=== PATIENT | male | born 1990 | race Caucasian/White ===

== ENCOUNTER 2022-07-17 07:59 | Day surgery (SDC) | payer OTHER ==
[2022-07-17] MEDS ORDERED: ACETAMINOPHEN 1000 MG/100 ML BAG IVPB ONE (08:32)
[2022-07-17] MEDS ORDERED: SODIUM CHLORIDE 0.9% 500 ML INFUS.BAG IV ONE (08:32)
[2022-07-17] MEDS ORDERED: ACETAMINOPHEN INJECTION 100 ML IVPB ONE (08:49)
[2022-07-17 09:27] LABS: BASO % 0.5 % (0-2.0); EOS % 1.4 % (0-4.5); HEMATOCRIT 42.7 % (35.4-49); HEMOGLOBIN 14.5 GM/dL (11.7-16.9); LYMPH % 31.3 % (8-40); MCH 29.6 pg (25.7-33.7); MCHC 33.9 g/dl (32.0-35.9); MEAN CELL VOLUME 87.3 fl (80-96); MEAN PLT VOLUME 10.8 fl (7.5-11.1); MONO % 7.4 % (3.8-10.2); NEUT % 59.4 % (42.8-82.8); PLATELET COUNT 168 10^3/uL (134-434); RBC 4.89 M/mm3 (4.00-5.60); WHITE BLOOD COUNT 7.8 K/mm3 (4.0-10.0)
[2022-07-17 09:31] LABS: INR 1.11 (0.83-1.09); PROTHROMBIN TIME (PATIENT) 12.9 SEC (9.7-13.0); URINE APPEARANCE CLEAR; URINE BILIRUBIN NEGATIVE (NEGATIVE); URINE COLOR YELLOW; URINE GLUCOSE (UA) NEGATIVE (NEGATIVE); URINE KETONE NEGATIVE (NEGATIVE); URINE LEUK ESTERASE NEGATIVE (NEGATIVE); URINE NITRITE NEGATIVE (NEGATIVE); URINE PROTEIN NEGATIVE (NEGATIVE); URINE UROBILINOGEN 0.2 mg/dL (0.2-1.0)
[2022-07-17 09:33] LABS: ACTIVATED PTT 30.9 SECONDS (25.2-36.5)
[2022-07-17 10:04] LABS: ALBUMIN 3.8 g/dl (3.4-5.0); CALCIUM 9.1 mg/dL (8.5-10.1)
[2022-07-17 10:09] LABS: BILIRUBIN,TOTAL 0.5 mg/dL (0.2-1); TOT PROT 7.2 g/dl (6.4-8.2)
[2022-07-17 10:37] LABS: BLOOD UREA NITROGEN 17.1 mg/dL (7-18); CREATININE 0.9 mg/dL (0.55-1.3)
[2022-07-17] MEDS ORDERED: CEFOXITIN SODIUM 2 GM in DEXTROSE 5%-WATER - 100 ML IVPB ONE ×2 (14:43→16:00)
[2022-07-17] MEDS ORDERED: ONDANSETRON 4 MG/2 ML VIAL IVPUSH PRN (15:39)
[2022-07-17] MEDS: DEXTROSE 5%-LACTATED RINGERS 1,000 ML IV SCH (16:09)
[2022-07-17 18:34] VITALS: BMI 32.4
[2022-07-18] MEDS: DEXTROSE 5%-LACTATED RINGERS 1,000 ML IV SCH (01:25)
[2022-07-18 07:58] LABS: BASO % 0.6 % (0-2.0); EOS % 2.3 % (0-4.5); HEMATOCRIT 39.6 % (35.4-49); HEMOGLOBIN 13.5 GM/dL (11.7-16.9); LYMPH % 39.7 % (8-40); MCH 29.7 pg (25.7-33.7); MCHC 34.1 g/dl (32.0-35.9); MEAN CELL VOLUME 87.3 fl (80-96); MEAN PLT VOLUME 10.7 fl (7.5-11.1); MONO % 7.1 % (3.8-10.2); NEUT % 50.3 % (42.8-82.8); PLATELET COUNT 153 10^3/uL (134-434); RBC 4.54 M/mm3 (4.00-5.60); RDW 12.4 % (11.9-15.9)
[2022-07-18] MEDS ORDERED: BUPIVACAINE HCL/PF 0.25% (2.5MG/ML) 10 ML VIAL ONE (08:10)
[2022-07-18 08:19] LABS: BLOOD UREA NITROGEN 10.9 mg/dL (7-18); CALCIUM 8.7 mg/dL (8.5-10.1)
[2022-07-18 08:23] LABS: CREATININE 0.9 mg/dL (0.55-1.3)
[2022-07-18] MEDS ORDERED: ROCURONIUM BROMIDE 50 MG/5 ML SYRINGE ONE (09:58)
[2022-07-18] MEDS ORDERED: SUCCINYLCHOLINE CHLORIDE 200 MG/10 ML SYRINGE ONE (09:58)
[2022-07-18] MEDS ORDERED: LIDOCAINE HCL/PF 2% SDV 5ML VIAL ONE (09:58)
[2022-07-18] MEDS ORDERED: MIDAZOLAM HCL 2 MG/2 ML SINGLE DOSE VIAL ONE (09:58)
[2022-07-18] MEDS ORDERED: cefOXitin SODIUM 2 GM VIAL (RESTRICTED TO ID) IVPB ONE ×2 (10:09→10:10)
[2022-07-18] MEDS ORDERED: ONDANSETRON 4 MG/2 ML VIAL ONE (10:11)
[2022-07-18] MEDS ORDERED: DEXAMETHASONE SOD PHOSPHATE 4 MG/1 ML VIAL ONE (10:11)
[2022-07-18] MEDS ORDERED: BUPIVACAINE HCL/PF 2.5 MG/ML - 30 ML VIAL IJ ONE (10:16)
[2022-07-18] MEDS ORDERED: SUGAMMADEX SODIUM 200 MG/2 ML VIAL ONE (10:32)
[2022-07-18] MEDS ORDERED: ONDANSETRON 4 MG/2 ML VIAL IVPUSH PRN ×2 (10:58→11:25)
[2022-07-18] MEDS ORDERED: LACTATED RINGERS SOLUTION 1,000 ML IV SCH (11:00)
[2022-07-18] MEDS ORDERED: oxyCODONE HCL 5 MG TABLET PO PRN ×2 (11:25)
[2022-07-18] MEDS ORDERED: IBUPROFEN 600 MG TABLET (FP) PO PRN (11:25)
[2022-07-18] MEDS ORDERED: ACETAMINOPHEN INJECTION 100 ML IVPB ONE (11:30)
[2022-07-18] MEDS: ACETAMINOPHEN 1000 MG/100 ML BAG IVPB SCH ×2 (11:31→18:50)
[2022-07-18] MEDS: LACTATED RINGERS SOLUTION 1,000 ML IV SCH ×3 (12:52→21:34)
[2022-07-19] MEDS: ACETAMINOPHEN 1000 MG/100 ML BAG IVPB SCH ×2 (02:26→11:30)
[2022-07-19] MEDS: LACTATED RINGERS SOLUTION 1,000 ML IV SCH ×2 (06:24→11:31)
[2022-07-19 10:45] LABS: BASO % 0.2 % (0-2.0); EOS % 0.3 % (0-4.5); HEMATOCRIT 37.4 % (35.4-49); HEMOGLOBIN 13.3 GM/dL (11.7-16.9); LYMPH % 21.9 % (8-40); MCH 30.6 pg (25.7-33.7); MCHC 35.5 g/dl (32.0-35.9); MEAN CELL VOLUME 86.2 fl (80-96); MEAN PLT VOLUME 10.7 fl (7.5-11.1); MONO % 7.5 % (3.8-10.2); NEUT % 70.1 % (42.8-82.8); PLATELET COUNT 181 10^3/uL (134-434); RBC 4.34 M/mm3 (4.00-5.60); RDW 12.3 % (11.9-15.9); WHITE BLOOD COUNT 10.1 K/mm3 (4.0-10.0)
[2022-07-19 11:09] LABS: CALCIUM 8.4 mg/dL (8.5-10.1)
[2022-07-19 11:10] LABS: BLOOD UREA NITROGEN 10.4 mg/dL (7-18)
[2022-07-19 11:13] LABS: CREATININE 0.9 mg/dL (0.55-1.3)
[2022-07-19] MEDS: DOCUSATE SODIUM 100 MG CAPSULE (FP) PO SCH ×2 (12:22→13:42)
[2022-07-19 18:07] VITALS: BP 135/69; PULSE 76; RESP 20; TEMP 98.4
== END 2022-07-19 18:21 | disposition home or self-care (01) ==
LOC: JER 07:59 → JERBED 15:12 → UNDOADMOB 15:12 → JASUSAT 18:04 → J6S 18:04 → SUATTDRO 18:04 → JERBED 18:04 → JASUSAT 07-19 18:21
PROC: 0DTJ4ZZ Resection of Appendix, Percutaneous Endoscopic Approach (ICD-10-PCS; principal; 2022-07-17)
DX: K35.80 Unspecified acute appendicitis (principal)
CPT/HCPCS: 36415; 74177-TC; 80048; 80053; 81003; 83605; 85025; 85610; 85730; 86850; 86900; 86901; 87086; 88304-TC; 94010; 94760; 99285-25; C9803-CS; U0003; U0005